=== PATIENT | female | born 1940 | race Caucasian/White ===

== ENCOUNTER 2016-07-02 10:32 | Outpatient (CLI) | payer MEDICARE, OTHER ==
[2016-07-02 10:54] LABS: BASOPHILS % 0.7 (0.0-1.5); EOSINOPHILS % 3.1 % (0.0-6.8); LYMPHOCYTES # 1.2 # k/uL (0.6-4.0); MEAN CORPUSCULAR HEMOGLOBIN 31.5 pg (28.0-34.0); MONOCYTES # 0.2 # k/uL (0.0-0.9); MONOCYTES % 4.7 % (0.0-11.0)
--- NOTE | 2016-07-02 15:15 | Diagnostic Imaging Report ---
[facility] [address] [facility].[address] [address] Report Submission Date: Jul 02, 2016 1:15:33 PM WELL TENDER Patient Study Name: REJI CASTELLON Date: Jul 02, 2016 10:57:27 AM WELL TENDER Modality Type: CR Gender: F Description: CHEST : 38 Institution: [facility] Physician: MIKE Tracey two views HISTORY: Cough, difficulty breathing, wheezing for 2 weeks FINDINGS: Breast implants and aortic atherosclerotic calcifications are observed. Minimal linear atelectasis or scar is present at the left lung base. Right posterior costophrenic sulcus blunting is present. There is no definite infiltrate. Heart size and pulmonary vascularity are normal. Osseous structures are intact. IMPRESSION: Possibly small right pleural effusion. Minimal left base atelectasis or scar. Atherosclerosis and breast implants. Electronically signed on Jul 02, 2016 1:15:33 PM WELL TENDER by: Marcos ARIAS
[2016-07-02 23:31] LABS: TOTAL PROTEIN 7.2 g/dL (6.0-8.5)
== END 2016-07-02 10:42 ==
LOC: LAB 10:32
PROVIDERS: ATTEND Family Medicine
DX: J18.9 Pneumonia, unspecified organism (principal); R73.9 Hyperglycemia, unspecified; E78.5 Hyperlipidemia, unspecified; E03.9 Hypothyroidism, unspecified
CPT/HCPCS: 36415; 71020; 80053; 80061; 83036; 84443; 85025

== ENCOUNTER 2016-07-28 15:58 | Outpatient (CLI) | payer MEDICARE, OTHER ==
--- NOTE | 2016-07-28 17:28 | Diagnostic Imaging Report ---
[facility] [address] [facility].[address] [address] Report Submission Date: Jul 28, 2016 5:26:40 PM SHAREPOINT ADMIN Patient Study Name: REJI CASTELLON Date: Jul 28, 2016 4:29:47 PM SHAREPOINT ADMIN Modality Type: CR Gender: F Description: SPINE : 38 Institution: [facility] Physician: DEJA JONES - OP Cervical spine multiple views Clinical history shoulder and elbow pain Technique AP open mouth oblique swimmer's lateral Findings: There is disc space narrowing at all cervical levels below C2/C3 greatest at C5/C6 and C6/C7. Anterior subluxation of C4 on C5 is present. Osteophytes encroach, neural foramen bilaterally at C3/C4, C4/C5, C5/C6 and C6/ C7. Facet joint degenerative arthritis is present throughout the cervical spine. There is no fracture or prevertebral soft tissue swelling. No abnormalities are seen of C1 or C2. The normal cervical curvature. Impression: Multilevel neural foraminal narrowing Cervical spondylosis Straight normal cervical curve Electronically signed on Jul 28, 2016 5:26:40 PM SHAREPOINT ADMIN by: Ashvin ARIAS
== END 2016-07-28 16:00 ==
LOC: RAD 15:58
PROVIDERS: ATTEND Family Medicine
DX: M46.92 Unspecified inflammatory spondylopathy, cervical region (principal); M47.892 Other spondylosis, cervical region; M60.9 Myositis, unspecified
CPT/HCPCS: 36415; 72050; 85651

== ENCOUNTER 2016-08-02 07:43 | Outpatient (CLI) | payer MEDICARE, OTHER ==
--- NOTE | 2016-08-02 09:21 | Diagnostic Imaging Report ---
[facility] [address] [facility], [facility] [address] Report Submission Date: Aug 02, 2016 9:16:40 AM ACTIVITIES ATTENDANT Patient Study Name: REJI CASTELLON Date: Aug 02, 2016 8:03:13 AM ACTIVITIES ATTENDANT Modality Type: MR Gender: F Description: MRI C SPINE W/O CONTRAST : 38 Institution: [facility] Physician: DEJA JONES - OP MRI cervical spine Exam: August 02, 2016. Clinical history: Posterior neck pain and spinal stenosis. Technique: Sagittal and axial T1 and T2 weighted sequences of the cervical spine. Findings: The cervical spine alignment is normal. There is C5/C6 and C6/C7 degenerative disc space narrowing. No acute bone marrow edema is identified. The cervical spinal cord signal characteristics are within normal limits. C3/4 disc bulging is present and creates slight deformity of the thecal sac anteriorly without significant spinal canal stenosis or neural foraminal narrowing. No significant disc bulge, protrusion or extrusion is identified at C4/C5. Bilateral uncovertebral spurring at C4/C5 creates mild bilateral neural foraminal narrowing. C5/C6 minimal disc bulging and endplate spurring is present that combined with bilateral uncovertebral spurring creates mild spinal canal stenosis and moderate bilateral neural foraminal narrowing. C6/C7 minimal disc bulging and endplate spurring present that combined with bilateral uncovertebral hypertrophy creates mild spinal canal stenosis and moderate bilateral neural foraminal narrowing. The craniocervical and cervicothoracic junctions are normal. Impression: C3/4 disc bulge without stenosis. C4/C5 bilateral uncovertebral spurring and mild bilateral neural foraminal narrowing. C5/C6 disc bulge and endplate spurring with mild spinal canal stenosis and moderate bilateral neural foraminal narrowing. C6/C7 disc bulge and endplate spurring with mild spinal canal stenosis and moderate bilateral neural foraminal narrowing. Electronically signed on Aug 02, 2016 9:16:40 AM DARYL by: David ARIAS
== END 2016-08-02 07:48 | disposition home or self-care (01) ==
LOC: RAD 07:43
PROVIDERS: ATTEND Family Medicine
DX: M99.81 Other biomechanical lesions of cervical region (principal)
CPT/HCPCS: 72141

== ENCOUNTER 2016-09-24 08:30 | Emergency (ER) | payer MEDICARE, OTHER ==
[2016-09-24] MEDS ORDERED: ONDANSETRON HCL/PF 4 MG/ 2ML VIAL IVP ONE (08:53)
[2016-09-24] MEDS ORDERED: 0.9 % SODIUM CHLORIDE 500 ML IV ONE (08:53)
[2016-09-24] MEDS ORDERED: ONDANSETRON HCL/PF 4 MG/ 2ML VIAL ONE (08:55)
[2016-09-24] MEDS ORDERED: 0.9 % SODIUM CHLORIDE 1,000 ML IV ONE (08:55)
[2016-09-24 09:10] LABS: BASOPHILS % 0.5 (0.0-1.5); EOSINOPHILS % 1.1 % (0.0-6.8); MEAN CORPUSCULAR HEMOGLOBIN 31.1 pg (28.0-34.0); MEAN CORPUSCULAR VOLUME 90.5 fl (80.0-100.0); MONOCYTES % 5.8 % (0.0-11.0); NEUTROPHILS # 5.8 # k/uL (1.4-7.7)
[2016-09-24 09:23] LABS: eGFR (African) > 60; eGFR (Non-African) 42
--- NOTE | 2016-09-24 12:13 | ED Physician Documentation ---
GI Bleed - HISTORIAN Historian: patient - HPI Stated Complaint: Rectal Bleeding Chief Complaint: GI Bleed Additional Information: bloody stool yesterday, nauseas, diarrhea x 1, passing clots today Onset: days ago (1) Timing: sudden onset, still present Severity: moderate Further Comments: no - Associated Symptoms Description of Stools: diarrhea, other (deven blood) Abdominal Pain: cramping (sigmoid and left lower abd.) Emesis Description: other (none) Description of Rectal Bleed: bloody diarrhea, other (clotsd) Other Related Symptoms: nausea - ROS CONST: no problems SKIN/LYMPH: denies: leg swelling, rash, swollen glands, ankle swelling GI/: denies: rectal intercourse, problems urinating, foreign body, genital pain EYES/ENT: problems with vision MS: none NEURO/PSYCH: denies: headache, lost feeling, confusion, anxiety, depression, loss of power - PAST HX Past History: other (diverticulosis) Other History: other (diverticulosis, ibs) Surgeries/Procedures: hysterectomy Immunizations: UTD Allergies/Adverse Reactions: Allergies Allergy/AdvReac Type Severity Reaction Status Date / Time Sulfa (Sulfonamide Allergy Verified 09/24/16 09:07 Antibiotics) - SOCIAL HX Smoking History: non-smoker Alcohol Use: none Drug Use: none - FAMILY HX Family History: none - VITAL SIGNS Vital Signs: Vital Signs Temp Pulse Resp BP Pulse Ox 97.1 F L 72 16 110/68 99 09/24/16 08:30 09/24/16 12:18 09/24/16 12:18 09/24/16 12:18 09/24/16 12:18 - REVIEWED ASSESSMENTS Nursing Assessment Reviewed: Yes Vitals Reviewed: Yes Progress - Results/Orders Results/Orders: cbc, cmp, ua, pt/ptt/inr, ct abdomen/pelvis ordered - Progress Progress: pt given 1 liter ns, zofran 8 mg ivp in er Critical Care Note - Critical Care Note Total Time (mins): 0 ED Results Lab/Radiology - Lab Results Lab Results: Lab Results 09/24/16 09/24/16 09/24/16 09:00 09:00 09:00 WBC 7.50 K/ul K/ul (4.00-12.00) RBC 4.23 M/ul M/ul (3.90-5.20) Hgb 13.1 g/dL g/dL (12.0-16.0) Hct 38.3 % % (34.5-46.5) MCV 90.5 fl fl (80.0-100.0) MCH 31.1 pg pg (28.0-34.0) MCHC 34.3 g/dL g/dL (30.0-36.0) RDW 13.2 % % (11.3-14.3) Plt Count 277 K/mm3 K/mm3 (130-400) Neut % (Auto) 77.5 % % (39.0-79.0) Lymph % (Auto) 13.9 % L % (16.0-50.0) [place] % (Auto) 5.8 % % (0.0-11.0) Eos % (Auto) 1.1 % % (0.0-6.8) Baso % (Auto) 0.5 (0.0-1.5) Neut # 5.8 # k/uL # k/uL (1.4-7.7) Lymph # 1.0 # k/uL # k/uL (0.6-4.0) [place] # 0.4 # k/uL # k/uL (0.0-0.9) Eos # 0.1 # k/uL # k/uL (0.0-0.6) Baso # 0.0 # k/uL # k/uL (0.0-0.5) Reactive Lymphs % 1.3 % % (0.0-5.0) Reactive Lymphs # 0.1 # k/uL # k/uL (0.0-0.8) PT 10.0 Seconds Seconds (9.7-11.5) INR 0.9 (0.9-1.1) APTT 23.7 Seconds L Seconds (24.5-32.8) Sodium 134 mmol/L L mmol/L (136-145) Potassium 4.1 mmol/L mmol/L (3.5-5.0) Chloride 99 mmol/L mmol/L (98-110) Carbon Dioxide 25 mmol/L mmol/L (20-32) BUN 18 mg/dL mg/dL (10-26) Creatinine 1.3 mg/dL mg/dL (0.4-1.5) Estimated Creat Clear 54 Est GFR ( Amer) > 60 (60 - ) Est GFR (Non-Af Amer) 42 L (60 - ) Glucose 136 mg/dL H mg/dL (70-99) Calcium 10.6 mg/dL H mg/dL (8.5-10.5) Total Bilirubin 1.2 mg/dL mg/dL (0.2-1.2) AST 20 U/L U/L (0-41) ALT 20 U/L U/L (0-45) Alkaline Phosphatase 76 U/L U/L (46-116) Total Protein 7.3 g/dL g/dL (6.0-8.5) Albumin 4.4 g/dL g/dL (3.0-5.5) - Radiology Radiology Impressions: ct abdomen/pelvis shows colitis, sigmoid and left descending colon - Orders Orders: ED Orders Category Date Time Status Place Saline Lock/IV Now Care 09/24/16 08:[address] ABD & PELVIS W/O CON Routine Exams 09/24/16 08:53 Completed CBC/PLATELET/DIFF Routine Lab 09/24/16 09:00 Completed CMP Routine Lab 09/24/16 09:00 Completed PT-INR Routine Lab 09/24/16 09:00 Completed PTT Routine Lab 09/24/16 09:00 Completed URINALYSIS Routine Lab 09/24/16 08:53 Ordered 0.9 % Sodium Chloride [Normal Saline] 1,000 ml Med 09/24/16 08:55 Discontinued IV .STK-MED 0.9 % Sodium Chloride [Normal Saline] 500 ml Med 09/24/16 08:53 Discontinued IV NOW Ondansetron HCl/Pf [Zofran 4 mg/2 ml] Med 09/24/16 08:55 Discontinued 8 mg .ROUTE .STK-MED ONE Ondansetron HCl/Pf [Zofran 4 mg/2 ml] Med 09/24/16 08:53 Discontinued 8 mg IVP NOW ONE Abdominal Pain Physical Exam - Physical Exam General Appearance: alert, mild distress EENT: eye inspection normal, ENT inspection normal, pharynx normal, no signs of dehydration, RICK, no nystagmus NECK: normal inspection, thyroid normal, supple RESPIRATORY: no resp distress, chest non-tender, breath sounds normal CVS: reg rate & rhythm, heart sounds normal, equal pulses, no murmur ABDOMEN: soft, no organomegaly, normal bowel sounds, tenderness (suprapubic and left lower quadrant areas) RECTAL: normal rectal tone, heme positive stool, other (bright red blood). No: hemorrhoids BACK: normal inspection, no CVA tenderness SKIN: warm/dry, normal color EXTREMITIES: non-tender, normal range of motion, no evidence of injury, no edema NEURO: oriented X3, CN's nml as tested, motor nml, sensation nml, mood/affect nml, cognition normal Vital Signs: Vital Signs Temp Pulse Resp BP Pulse Ox 97.1 F L 72 16 110/68 99 09/24/16 08:30 09/24/16 12:18 09/24/16 12:18 09/24/16 12:18 09/24/16 12:18 Discharge Clincal Impression: Colitis Referrals: Angel Clayton MD [Primary Care Provider] - 2 Days Comments: discharged in stable condition with scripts for prednisone taper and flagyl 500 mg #21 1 p.o. tid. Condition: Stable Disposition: 01 HOME, SELF-CARE Decision to Admit: NO Decision Time: 12:00
[2016-09-24 12:21] VITALS: BP 110/68
--- NOTE | 2016-09-24 15:21 | Diagnostic Imaging Report ---
[facility] [address] [facility].[address] [address] Report Submission Date: Sep 24, 2016 11:25:58 AM CDT Patient Study Name: REJI CASTELLON Date: Sep 24, 2016 10:20:16 AM CDT Modality Type: CT\SR Gender: F Description: CT ABD & PELVIS W/O CO : 38 Institution: [facility] Physician LEDY CARVAJAL - CT of the abdomen and pelvis without contrast CLINICAL HISTORY: Acute lower gastrointestinal bleeding. Abdominal pain. TECHNIQUE: CT of the abdomen and pelvis is performed without oral or intravenous administration of contrast. Sagittal and coronal reconstructions are performed by the technologist. Intravenous contrast was not administered because of the patient's allergies. FINDINGS: Visualized lung bases are clear. Intracapsular rupture of the patient's left breast implant is demonstrated. Liver demonstrates normal attenuation without focal defect. Gallbladder is normally distended. There is a partially calcified splenic cyst anteriorly. The spleen is otherwise unremarkable. Vascular calcification and ectasia are present in the abdominal aorta without evidence of aneurysm. Kidneys are of normal size, shape and position. Bladder is unremarkable. There is no free fluid in the pelvis or abdomen. There is colonic wall thickening although the colon is nondistended beginning at the level of the splenic flexure and extending to the sigmoid colon with stranding in the fat consistent with colitis. IMPRESSION: Colitis of the descending and sigmoid colon. Splenic cyst. Intracapsular rupture of the patient's left implant. Vascular calcification. Electronically signed on Sep 24, 2016 11:25:58 AM CDT by: Tristian ARIAS
== END 2016-09-24 12:18 | disposition home or self-care (01) ==
LOC: ED 08:30
DX: K52.9 Noninfective gastroenteritis and colitis, unspecified (principal)
CPT/HCPCS: 74176; 80053; 85025; 85610; 85730; J2405; J7030; J7060; S1016

== ENCOUNTER 2017-03-04 09:55 | Outpatient (CLI) | payer MEDICARE, OTHER ==
--- NOTE | 2017-03-04 11:05 | Diagnostic Imaging Report ---
SANJUANITA MCKEON~ [facility] [address] [facility].[address] [address] ~ ~ ~ ~ Report Submission Date: Mar 04, 2017 10:38:48 AM CDT Patient ~ Study Name: REJI CASTELLON ~ Date: Mar 04, 2017 10:15:52 AM CDT ~ Modality Type: CR Gender: F ~ Description: UPPER EXTREMITY : 38 ~ Institution: [facility] Physician: SANJUANITA MCKEON ~ ~ ~ ~ Examination: Plain film extremity History: Thumb discomfort Comparison exams: None available Findings: 3 views the 1st digit demonstrates generalized osteopenia. Advanced degenerative disease of the 1st carpal metacarpal articulation. Moderate degenerative changes of the interphalangeal joints. Ossific spurring. No disruption of the cortical margins. No soft tissue abnormality. Impression: Degenerative changes without fracture. ~ Electronically signed on Mar 04, 2017 10:38:48 AM CDT by: Jama ARIAS
--- NOTE | 2017-03-04 11:10 | Diagnostic Imaging Report ---
SANJUANITA MCKEON~ [facility] [address] [facility] [address] [place] [address]. [address] ~ ~ ~ ~ Report Submission Date: Mar 04, 2017 10:36:33 AM CDT Patient ~ Study Name: REJI CASTELLON ~ Date: Mar 04, 2017 10:07:30 AM CDT ~ Modality Type: US Gender: F ~ Description: DPLX SCN XTRCRAN ART CMP CRISTOFER : 38 ~ Institution: [facility] Physician: SANJUANITA MCKEON ~ ~ ~ ~ Examination: Carotid artery ultrasound History: Evaluate stenosis. Comparison exams: None available Findings: Right carotid: Common carotid artery peak systolic velocity 78.2 cm/s; end diastolic velocity 20.6 cm/s. Internal carotid artery peak systolic velocity 81.1 cm/s;~ end diastolic velocity 23.8 cm/s. External carotid artery velocity to 69.5 cm/s. Vertebral artery velocity 38.3 cm/s Vertebral flow antegrade.~ Normal waveforms. No occlusive plaquing. Left carotid: Common carotid artery peak systolic velocity 113.5 cm/s; end diastolic velocity 21.5 cm/s. Internal carotid artery peak systolic velocity 107.0 cm/s;~ end diastolic velocity 30.6 cm/s. External carotid artery velocity to 72.1 cm/s. Vertebral artery velocity 39.1 cm/s Vertebral flow antegrade.~ Normal waveforms. No occlusive plaquing. Right ICA/CCA Ratio: 1.0 Left ICA/CCA Ratio 0.9 Impression: Carotids ratios not elevated. No restriction to hemodynamic flow. Correlate with prior exam when becomes available. ~ Electronically signed on Mar 04, 2017 10:36:33 AM CDT by: Jama ARIAS
== END 2017-03-04 09:56 ==
LOC: RAD 09:55
PROVIDERS: ATTEND Family Medicine
DX: E78.00 Pure hypercholesterolemia, unspecified (principal); I65.23 Occlusion and stenosis of bilateral carotid arteries; M79.645 Pain in left finger(s)
CPT/HCPCS: 73140; 93880

== ENCOUNTER 2017-08-23 14:16 | Outpatient (CLI) | payer MEDICARE, OTHER ==
[2017-08-23 14:36] LABS: BASOPHILS % 0.8 (0.0-1.5); EOSINOPHILS % 3.2 % (0.0-6.8); MEAN CORPUSCULAR HEMOGLOBIN 32.3 pg (28.0-34.0); MEAN CORPUSCULAR VOLUME 90.8 fl (80.0-100.0); MONOCYTES % 7.5 % (0.0-11.0); NEUTROPHILS # 4.1 # k/uL (1.4-7.7)
[2017-08-23 15:11] LABS: eGFR (African) > 60; eGFR (Non-African) 39
== END 2017-08-23 14:17 ==
LOC: LAB 14:16
PROVIDERS: ATTEND Family Medicine
DX: E03.9 Hypothyroidism, unspecified (principal); R73.9 Hyperglycemia, unspecified; I10 Essential (primary) hypertension
CPT/HCPCS: 36415; 80053; 80061; 83036; 84443; 85025

== ENCOUNTER 2017-10-25 13:44 | Outpatient (CLI) | payer MEDICARE, OTHER ==
[2017-10-25 14:05] LABS: BASOPHILS % 0.7 (0.0-1.5); EOSINOPHILS % 2.7 % (0.0-6.8); MEAN CORPUSCULAR HEMOGLOBIN 31.9 pg (28.0-34.0); MEAN CORPUSCULAR VOLUME 92.9 fl (80.0-100.0); MONOCYTES % 6.7 % (0.0-11.0); NEUTROPHILS # 3.4 # k/uL (1.4-7.7)
[2017-10-25 14:37] LABS: eGFR (African) > 60; eGFR (Non-African) 42
== END 2017-10-25 13:55 ==
LOC: LAB 13:44
PROVIDERS: ATTEND Family Medicine
DX: R10.11 Right upper quadrant pain (principal)
CPT/HCPCS: 36415; 80053; 85025

== ENCOUNTER 2017-11-09 07:47 | Outpatient (CLI) | payer MEDICARE, OTHER ==
[2017-11-09 08:44] LABS: eGFR (African) > 60; eGFR (Non-African) 42
[2017-11-09 16:22] LABS: ADENOVIRUS F 40/41 Not Detected (Not Detected); ASTROVIRUS Not Detected (Not Detected); C. DIFFICILE (TOXIN A/B) Not Detected (Not Detected); CRYPTOSPORIDIUM Not Detected (Not Detected); CYCLOSPORA CAYETANENSIS Not Detected (Not Detected); ENTAMOEBA HISTOLYTICA Not Detected (Not Detected); GIARDIA LAMBLIA Not Detected (Not Detected); ROTAVIRUS A Not Detected (Not Detected); SAPOVIRUS Not Detected (Not Detected); VIBRIO CHOLERAE Not Detected (Not Detected)
--- NOTE | 2017-11-09 17:38 | Diagnostic Imaging Report ---
SANJUANITA MCKEON [facility] [address] [facility].[address] [address] Report Submission Date: Nov 09, 2017 9:37:12 AM CDT Patient Study Name: REJI CASTELLON I Date: Nov 09, 2017 8:39:00 AM CDT Modality Type: US Gender: F Description: : 38 Institution: [facility] Physician: SANJUANITA MCKEON Examination: Ultrasound gallbladder History: NAUSEA AND VOMITING OF YELLOW AND GREEN BILE FOR 2 MONTHS RUQ ULTRASOUND NEGATIVE (Hx) Findings: Sonographic evaluation of the right upper quadrant demonstrates the gallbladder without stones or sludge. Gallbladder wall measures 2.2 mm. Common bile duct measures 4.0 mm. No intrahepatic biliary dilation. Liver demonstrates normal homogeneous echogenicity. No mass or cyst. Normal flow on color analysis. Right kidney measures 8.6 cm in length. No cortical mass or cyst. No hydronephrosis. Pancreatic region without gross irregularity. Impression: No gallstone or obstruction. Unremarkable abdominal ultrasound. Electronically signed on Nov 09, 2017 9:37:12 AM CDT by: Jama ARIAS
== END 2017-11-09 07:50 ==
LOC: LAB 07:47
PROVIDERS: ATTEND Family Medicine
DX: E86.0 Dehydration (principal); R19.7 Diarrhea, unspecified; R10.11 Right upper quadrant pain; E83.52 Hypercalcemia
CPT/HCPCS: 36415; 76705; 80053; 87507

== ENCOUNTER 2018-01-13 08:36 | Emergency (ER) | payer MEDICARE, OTHER ==
--- NOTE | 2018-01-13 08:41 | ED Physician Documentation ---
Fall - HISTORIAN Historian: patient - HPI Stated Complaint: fall and headache Chief Complaint: Fall Onset: days ago (3) Where: home Context: slipped r: mild Associated Symptoms:: no loss of consciousness Location of Pain/Injury: head, face Injury to Right Extremity: none Injury to Left Extremity: none Further Comments: yes (she reports she was walking down her ott and "fell" and she hit her face on the left side of her face and head. she states she initally had some pain and blurry vision but she felt this was "better" but then she felt this am no improvment so she wanted to get it "checked out" No weakness on one side or another. She has no memory or speech issues. She states the headahce is slightly improved with Motrin but it "does upset my stomach") - ROS CONST: no problems NEURO: denies: dizziness MS/SKIN/LYMPH: denies: weakness, numbness, neck pain, back pain, ankle swelling, leg swelling, rash EYES/ENT: problems with vision. denies: nasal drainage CVS/RESP: none GI/: denies: problems urinating, nausea, vomiting - PAST HX Past History: other (hypertension (takes meds when she feels she needs them)) Immunizations: UTD Allergies/Adverse Reactions: Allergies Allergy/AdvReac Type Severity Reaction Status Date / Time Sulfa (Sulfonamide Allergy Verified 09/24/16 09:07 Antibiotics) - SOCIAL HX Smoking History: cigarettes Alcohol Use: none Drug Use: none - FAMILY HX Family History: none - VITAL SIGNS Vital Signs: Vital Signs Temp Pulse Resp BP Pulse Ox 110/68 09/24/16 12:18 - REVIEWED ASSESSMENTS Nursing Assessment Reviewed: Yes Vitals Reviewed: Yes Progress - Progress Progress: 1015: stating she wants to go home and we can call her later with results DG 1030: discussed results and plan - she is agreeable DG ED Results Lab/Radiology - Radiology Radiology Impressions: TECHNIQUE: 5 mm contiguous axial images of the brain, noncontrast. FINDINGS: There is no evidence of intracranial mass effect, hemorrhage, or acute hydrocephalus. The lateral ventricles are symmetrical and the 4th ventricle is midline without shift. No acute brain parenchymal changes or extra-axial fluid collections are identified. The posterior fossa contents are within normal limits. There is a age related white matter disease compatible with chronic small vessel ischemic disease.. The calvarium is intact. The visualized sinuses and mastoid air cells are clear. IMPRESSION: No acute intracranial process. Senescent changes Electronically signed on Jan 13, 2018 9:35:33 AM CDT by: Ash Sanches TECHNIQUE: 3 mm contiguous axial images of the maxillofacial region with reformations FINDINGS: The frontal and ethmoid sinuses are clear. The osteomeatal complexes are patent bilaterally. The nasal septum is midline and the nasal turbinates are normal. The bilateral maxillary and sphenoid sinuses are clear. There is no evidence of significant sinus mucosal thickening, air fluid level or sinus wall bone destruction. The visualized mastoid air cells are clear. There is narrowing of the right tmj joint with soft tissue thickening IMPRESSION: No acute or chronic sinusitis. Narrowing of right tmj joint soft tissue the compatible with arthritic change Electronically signed on Jan 13, 2018 9:37:55 AM CDT by: Ash Sanches Fall Physical Exam - Physical Exam General Appearance: no acute distress, alert Head: non-tender (she does have left sided face swelling and a healing bruise ) Neck: non-tender, painless ROM Eye: RICK ENT: nml external inspection, no dental injury Resp/CVS: chest non-tender, breath sounds nml, no resp. distress, heart sounds nml. No: rib tenderness Abdomen: soft, normal bowel sounds Neuro: oriented x3, CN's nml as tested, sensation nml, motor nml, mood/affect nml, line fisher nml, reflexes nml, line fisher symmetrical Skin: color nml Extremities: atraumatic Joint: joints nml, nml ROM, Nml gait/weight bearing - Lily Coma Score Eyes Open: Spontaneous Speech: Oriented Motor: Obeys Commands Discharge Clincal Impression: Headache Qualifiers: Headache type: unspecified Headache chronicity pattern: acute headache Intractability: not intractable Qualified Code(s): R51 - Headache Referrals: Angel Clayton MD [Primary Care Provider] - 2 Days Comments: 1. Continue OTC meds for headache 2. Follow up with PCP In 2-4 days 3. Return to ER for any concerns Condition: Stable Disposition: 01 HOME, SELF-CARE Decision to Admit: NO Date of Decison to Admit: 01/13/18 Decision Time: 10:31
[2018-01-13 10:04] LABS: BASOPHILS % 0.9 (0.0-1.5); EOSINOPHILS % 3.8 % (0.0-6.8); MEAN CORPUSCULAR HEMOGLOBIN 32.5 pg (28.0-34.0); MONOCYTES % 6.9 % (0.0-11.0); NEUTROPHILS # 2.6 # k/uL (1.4-7.7)
[2018-01-13] MEDS: KETOROLAC TROMETHAMINE 60 MG/2 ML VIAL IM ONE (10:30)
[2018-01-13 13:22] VITALS: BP 142/85
--- NOTE | 2018-01-13 16:08 | Diagnostic Imaging Report ---
ELEUTERIO SINGH [facility] [address] [facility] [address] [place], [place]. [address] Report Submission Date: Jan 13, 2018 9:35:33 AM CDT Patient Study Name: REJI CASTELLON I Date: Jan 13, 2018 9:16:23 AM CDT Modality Type: CT\SR Gender: F Description: CT BRAIN W/O CONTRAST : 38 Institution: [facility] Physician: ELEUTERIO SINGH CT brain noncontrast CLINICAL HISTORY: CT HEAD, FALL X3 DAYS AGO WITH CONTINUED RT SIDED PAIN/HEADAHCES (Hx) / ITS.REASON fall and pain on right side of head TECHNIQUE: 5 mm contiguous axial images of the brain, noncontrast. FINDINGS: There is no evidence of intracranial mass effect, hemorrhage, or acute hydrocephalus. The lateral ventricles are symmetrical and the 4th ventricle is midline without shift. No acute brain parenchymal changes or extra-axial fluid collections are identified. The posterior fossa contents are within normal limits. There is a age related white matter disease compatible with chronic small vessel ischemic disease.. The calvarium is intact. The visualized sinuses and mastoid air cells are clear. IMPRESSION: No acute intracranial process. Senescent changes Electronically signed on Jan 13, 2018 9:35:33 AM CDT by: Ash ARIAS
--- NOTE | 2018-01-13 16:08 | Diagnostic Imaging Report ---
ELEUTERIO SINGH [facility] [address] [facility] [address] [place], [place]. [address] Report Submission Date: Jan 13, 2018 9:37:55 AM CDT Patient Study Name: REJI CASTELLON I Date: Jan 13, 2018 9:18:54 AM CDT Modality Type: CT\SR Gender: F Description: CT MAXILLOFACIAL W/O D : 38 Institution: [facility] Physician: ELEUTERIO SINGH CT facial bones Date of study: CLINICAL HISTORY: CT FACIAL BONES, FALL X3 DAYS AGO WITH CONTINUED RT SIDED EYE AND JAW PAIN (Hx) / ITS.REASON fall and eye pain and jaw pain TECHNIQUE: 3 mm contiguous axial images of the maxillofacial region with reformations FINDINGS: The frontal and ethmoid sinuses are clear. The osteomeatal complexes are patent bilaterally. The nasal septum is midline and the nasal turbinates are normal. The bilateral maxillary and sphenoid sinuses are clear. There is no evidence of significant sinus mucosal thickening, air fluid level or sinus wall bone destruction. The visualized mastoid air cells are clear. There is narrowing of the right tmj joint with soft tissue thickening IMPRESSION: No acute or chronic sinusitis. Narrowing of right tmj joint soft tissue the compatible with arthritic change Electronically signed on Jan 13, 2018 9:37:55 AM CDT by: Ash ARIAS
== END 2018-01-13 10:40 | disposition home or self-care (01) ==
LOC: ED 08:36
DX: R51 Headache (principal); W19.XXXA Unspecified fall, initial encounter; Y92.9 Unspecified place or not applicable; Y93.9 Activity, unspecified; Y99.9 Unspecified external cause status
CPT/HCPCS: 70450; 70486; 80053; 82565; 85025; 85610; J1885; 96372; 99283; S1016

== ENCOUNTER 2018-03-10 10:19 | Outpatient (CLI) | payer MEDICARE, OTHER | END 2018-03-10 10:20 | LOC: LAB 10:19 | PROVIDERS: ATTEND Family Medicine | DX: E03.9 Hypothyroidism, unspecified (principal) | CPT/HCPCS: 36415; 84443 ==

== ENCOUNTER 2018-04-11 15:15 | Outpatient (CLI) | payer MEDICARE, OTHER | END 2018-04-11 15:16 | LOC: LABRHC 15:15 | PROVIDERS: ATTEND Family Medicine | DX: N39.0 Urinary tract infection, site not specified (principal) | CPT/HCPCS: 87086 ==

== ENCOUNTER 2018-06-29 08:41 | Outpatient (CLI) | payer MEDICARE, OTHER | END 2018-06-29 09:00 | LOC: LABRHC 08:41 | PROVIDERS: ATTEND Family Medicine | DX: E03.9 Hypothyroidism, unspecified (principal) | CPT/HCPCS: 84443 ==

== ENCOUNTER 2019-01-09 16:12 | Outpatient (CLI) | payer MEDICARE, OTHER ==
[2019-01-09 17:28] LABS: HDL 42 mg/dL (>40); eGFR (Non-African) 44
== END 2019-01-09 16:14 ==
LOC: LAB 16:12
PROVIDERS: ATTEND Family Medicine
DX: E78.5 Hyperlipidemia, unspecified (principal); E03.9 Hypothyroidism, unspecified
CPT/HCPCS: 36415; 80053; 80061

== ENCOUNTER 2019-05-08 15:09 | Outpatient (CLI) | payer MEDICARE, OTHER | END 2019-05-08 15:15 | LOC: LABRHC 15:09 | PROVIDERS: ATTEND Family Medicine | DX: N30.90 Cystitis, unspecified without hematuria (principal) | CPT/HCPCS: 87086; 87186 ==